=== PATIENT | female | born 1945 | race Caucasian/White ===

== ENCOUNTER 2016-05-10 07:45 | Emergency (ER) | payer OTHER ==
--- NOTE | 2016-05-10 08:07 | ED Physician Chart ---
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 History of Present Illness:: Pt has had dysuria, urgency and frequency with urination since this morning. No fever. No N/V/D. No lightheadedness or other bodily pain or discomfort. Allergies:: Codeine Vitals:: see Nurse Note. Historian:: Patient Family MD/PCP:: LMP:: Postmenopausal. Review:: Nurse's Note Reviewed Review of Systems - Review of Systems General/Constitutional: No fever, No chills, No weight loss, No weakness, No diaphoresis, No edema, No loss of appetite Skin: No skin lesions, No rash, No bruising Head: No headache, No light-headedness Eyes: No loss of vision, No pain, No diplopia ENT: No earache, No nasal drainage, No sore throat, No tinnitus Neck: No neck pain, No swelling, No thyromegaly, No stiffness, No mass noted Cardio Vascular: No chest pain, No palpitations, No PND, No orthopnea, No edema Pulmonary: No SOB, No cough, No sputum, No wheezing GI: No nausea, No vomiting, No diarrhea, No pain, No melena, No hematochezia, No constipation, No hematemesis G/U: Dysuria, Frequency, No hematuria Telehealth Coordinator: No vaginal discharge, No abnormal vaginal bleed Musculoskeletal: No bone or joint pain, No back pain, No muscle pain Endocrine: No polyuria, No polydipsia Psychiatric: No prior psych history Past Medical History - Past Medical History Past Medical History: HTN, DM, Thyroid disorder Family History: HTN (mother.) Social History: Non Smoker, No Alcohol, No Drug Use, , Lives Alone, Other (lives with) Employment:: Retired. Surgical History: Cholecystectomy (), Hysterectomy (. Right upper lobectomy . L knee arthroscopy . ), other (R breast lumpectomy and . Thyroidectomy. L hip replacement . Cervical laminectom ) Psychiatricy History: None Medication: Reviewed Physical Exam - Physical Examination General/Constitutional: Awake, Well-developed, well-nourished, Alert, No distress, GCS 15, Non-toxic appearing, Ambulatory Other Gen/Cons comments:: Breathes comfortably, speaks clearly, and interacts normally. Head: Atraumatic Eyes: Lids, conjuctiva normal, PERRL, EOMI Skin: Nl inspection, No rash, No skin lesions, No ecchymosis, Well hydrated, No lymphadenopathy Neck: Nontender, Full ROM w/o pain, No nuchal rigidity, No stridor Respiratory: Nl effort/Exclusion, Clear to Auscultation, No Wheeze/Rhonchi/Rales Cardio Vascular: RRR, No murmur, gallop, rubs, NL S1 S2 GI: No tenderness/rebounding/guarding, No organomegaly, No hernia, Normal BS's, Nondistended, No mass/bruits, No McBurney tenderness Other GI comments:: Abdomen is obese but soft. : No CVA tenderness Extremities: No tenderness or effusion, Full ROM, normal strength in all extremities, No edema, Normal digits & nails Neuro/Psych: Alert/oriented (oriented x 3), Judgement/insight normal, Mood normal, Normal gait, No focal deficits Labs/Radiology/EKG Results - Lab Results Results: Laboratory Tests 05/10/16 05/10/16 08:20 08:29 POC Glucose 187 H Urine Source [place] Urine Color YELLOW Urine Clarity SL. CLOUDY Urine pH 6.5 Ur Specific [place] 1.015 Urine Protein 100 H Urine Glucose (UA) NEGATIVE Urine Ketones NEGATIVE Urine Blood LARGE H Urine Nitrate NEGATIVE Urine Bilirubin NEGATIVE Urine Urobilinogen 0.2 Ur Leukocyte Esterase LARGE H Urine RBC 20-30 Urine WBC >100 H Ur Epithelial Cells FEW Urine Bacteria FEW ED Septic Shock - . Is Septic Shock (SBP<90, OR Lactate>4 mmol\L) present?: No Reassessment (Disposition) - Reassessment Reassessment:: 1005 Pt has been repeatedly evaluated. Pt remains stable. Lab findings have been reviewed with pt. Pt was noticed to have elevated BP. Pt stated that she had not taken her morning doses of antihypertensives today. Pt was given her usual medications metoprolol and losartan. Her BP has improved. Pt states that she knows how to monitor her BP at home and prefers to go home now. Pt does not want further observation/management in hospital. Pt will recheck her BP again prior to taking her diltiazem at home today. Pt is aware of the importance of compliance with medical therapy, as well as proper actions to be taken with poorly controlled and uncontrolled HTN. Aftercare instructions given. Reassessment Condition:: Improved - Diagnosis Diagnosis:: Urinary tract infection, stable. HTN, stable and improved. Diabetes mellitus, stable. - Aftercare/Follow up Instructions Aftercare/Follow-Up Instructions:: Refer to Discharge Instructions Notes:: Continue present care. F/U with PCP in one day for BP recheck and follow-up. Return to ER immediately if condition worsens or if any further questions/problems. Medication Prescribed:: Bactrim DS one tab po q12h for 7 days. D-14 R-0 Pyridium 200 mg tab one tab po q8h prn dysuria. D-6 R-0 - Patient Disposition Discharge/Transfer:: Home Time:: 10:10 Condition at Disposition:: Stable, Improved ED Discharge Plan - Patient Disposition Prescriptions: Sulfamethoxazole/TMP [Bactrim DS] 1 tab PO Q12HR #0 tab Phenazopyridine HCl [Pyridium] 200 mg PO TID #0 tab Instructions: Urinary Tract Infection, [id number] Additional Instructions: Follow up with your primary doctor in 1-2 days Take all antibiotics as prescribed Drink plenty of fluids If symptoms worsen return to ER
[2016-05-10 08:28] LABS: URINE BILIRUBIN NEGATIVE (NEGATIVE); URINE BLOOD LARGE (NEGATIVE); URINE COLOR YELLOW; URINE GLUCOSE (UA) NEGATIVE (NEGATIVE); URINE KETONE NEGATIVE (NEGATIVE); URINE PH 6.5; URINE PROTEIN 100 mg/dL (NEGATIVE)
[2016-05-10 08:29] LABS: URINE UROBILINOGEN 0.2 E.U./dL (0.2 - 1.0)
[2016-05-10 08:34] LABS: URINE BACTERIA FEW /hpf (NONE SEEN); URINE EPITHELIAL CELLS FEW /lpf (FEW); URINE RBC 20-30 /hpf (0-5); URINE WBC >100 /hpf (0-5)
[2016-05-10] MEDS ORDERED: Sulfamethoxazole/TMP 800/160mg Tab PO ONE (08:56)
[2016-05-10] MEDS ORDERED: Sulfamethoxazole/TMP 800/160mg Tab ONE (09:00)
== END 2016-05-10 10:00 | disposition home or self-care (01) ==
LOC: ER 07:45
DX: N39.0 Urinary tract infection, site not specified (principal); I10 Essential (primary) hypertension; E11.9 Type 2 diabetes mellitus without complications; E07.9 Disorder of thyroid, unspecified; E89.0 Postprocedural hypothyroidism; Z88.6 Allergy status to analgesic agent
CPT/HCPCS: 81001-TC; 82948-90; 87086-90; Z7502

== ENCOUNTER 2017-01-12 06:52 | Emergency (ER) | payer MEDICARE, OTHER ==
[2017-01-12 08:04] LABS: URINE BILIRUBIN NEGATIVE (NEGATIVE); URINE BLOOD SMALL (NEGATIVE); URINE GLUCOSE (UA) 100 mg/dL (NEGATIVE); URINE KETONE NEGATIVE (NEGATIVE); URINE PH 6.5 (4.6 - 8.0); URINE PROTEIN 30 mg/dL (NEGATIVE)
--- NOTE | 2017-01-12 08:12 | ED Physician Chart ---
Chief Complaint/HPI - Patient Information Date Seen:: 01/12/17 Time Seen:: 08:07 Chief Complaint:: dysuria History of Present Illness:: pt thinks she has uti sx since yest noon. was up 4x last nt to urinate. no fever. no back pain. some nausea and gi upset at times (similar to prior uti's)..not bad now. she is drinking ok at home. she had some leftover meds so took a bactrim ds and macrobid 1x last nt wo relief yet. has hx of uti's. she had l eye sx for cateract 2 wks ago. no weakness. .no instability. pt does not feel she needs to be in hospital..feels ok to be at home. needs more meds as has only 1 abx pill left. her pmd is closed and clinics were shut yest bc of holiday. Allergies:: Allergies Allergy/AdvReac Type Severity Reaction Status Date / Time codeine Allergy Verified 01/12/17 07:00 Vitals:: Vital Signs - 8 hr 01/12/17 06:55 Temp 97.2 F HR 88 RR 20 BP 131/79 O2 Sat % 97 Historian:: Patient Review of Systems - Review of Systems General/Constitutional: No fever, No chills, No weight loss, No weakness, No diaphoresis, No edema, No loss of appetite Skin: No skin lesions, No rash, No bruising Head: No headache, No light-headedness Eyes: No loss of vision, No pain, No diplopia ENT: No earache, No nasal drainage, No sore throat, No tinnitus Neck: No neck pain, No swelling, No thyromegaly, No stiffness, No mass noted Cardio Vascular: No chest pain, No palpitations, No PND, No orthopnea, No edema Pulmonary: No SOB, No cough, No sputum, No wheezing GI: No nausea, No vomiting, No diarrhea, No pain, No melena, No hematochezia, No constipation, No hematemesis G/U: Dysuria, No frequency, No hematuria Musculoskeletal: No bone or joint pain, No back pain, No muscle pain Endocrine: No polyuria, No polydipsia Psychiatric: No prior psych history, No depression, No anxiety, No suicidal ideation Hematopoietic: No bruising, No lymphadenopathy Allergic/Immuno: No urticaria, No angioedema Neurological: No syncope, No focal symptoms, No weakness, No paresthesia, No headache, No seizure, No dizziness, No confusion, No vertigo Past Medical History - Past Medical History Past Medical History: HTN (ctrld well per pt), Cataract (sx on l eye 2 wks ago) , Other (rt breast ca w multiple sx hx) Social History: Lives Alone Medication: Reviewed Family Medical History - Family Member Mother History Unknown: Yes Physical Exam - Physical Examination General/Constitutional: Awake, Well-developed, well-nourished, Alert, No distress, GCS 15, Non-toxic appearing, Ambulatory Other Gen/Cons comments:: alert. very verbose. nad. nontoxic. wn/wh. mod obese no edema. good mobility. Head: Atraumatic Eyes: Lids, conjuctiva normal, PERRL, EOMI Skin: Nl inspection, No rash, No skin lesions, No ecchymosis, Well hydrated, No lymphadenopathy ENMT: External ears, nose nl, Nasal exam nl, Lips, teeth, gums nl Neck: Nontender, Full ROM w/o pain, No JVD, No nuchal rigidity, No bruit, No mass, No stridor Respiratory: Nl effort/Exclusion, Clear to Auscultation, No Wheeze/Rhonchi/Rales Cardio Vascular: RRR, No murmur, gallop, rubs, NL S1 S2 GI: No tenderness/rebounding/guarding, No organomegaly, No hernia, Normal BS's, Nondistended, No mass/bruits, No McBurney tenderness Other GI comments:: nabs. no masses. no focal tndrness. mild tndr at bladder. no rebound. : No CVA tenderness Extremities: No tenderness or effusion, Full ROM, normal strength in all extremities, No edema, Normal digits & nails Neuro/Psych: Alert/oriented, DTR's symmetric, Normal sensory exam, Normal motor strength, Judgement/insight normal, Mood normal, Normal gait, No focal deficits Misc: normal gait, Normal back, No paraspinal tenderness Labs/Radiology/EKG Results - Lab Results Results: Laboratory Tests 01/12/17 07:05 Urine Source CLEAN C Urine Color ORANGE Urine Clarity [place] Urine pH 6.5 Ur Specific [place] 1.015 Urine Protein 30 H Urine Glucose (UA) 100 H Urine Ketones NEGATIVE Urine Blood SMALL H Urine Nitrate POSITIVE H Urine Bilirubin NEGATIVE Urine Urobilinogen 2.0 Ur Leukocyte Esterase LARGE H Urine RBC 10-25 H Urine WBC >100 H Ur Epithelial Cells FEW Urine Bacteria 4+ H ED Septic Shock - . Is Septic Shock (SBP<90, OR Lactate>4 mmol\L) present?: No - <6hrs of presentation: Vital Signs: Vital Signs - 8 hr 01/12/17 06:55 Temp 97.2 F HR 88 RR 20 BP 131/79 O2 Sat % 97 Reassessment (Disposition) - Reassessment Reassessment Condition:: Unchanged - Diagnosis Diagnosis:: uti - Aftercare/Follow up Instructions Aftercare/Follow-Up Instructions:: Counseled pt regarding lab results/diagnosis & need follow up - Patient Disposition Discharge/Transfer:: Home Condition at Disposition:: Unchanged
[2017-01-12 08:15] LABS: URINE COLOR ORANGE
[2017-01-12 08:28] LABS: URINE BACTERIA 4+ /hpf (NONE SEEN); URINE EPITHELIAL CELLS FEW /lpf (FEW); URINE WBC >100 /hpf (0-5)
== END 2017-01-12 09:00 | disposition home or self-care (01) ==
LOC: ER 06:52
DX: N39.0 Urinary tract infection, site not specified (principal); I10 Essential (primary) hypertension
CPT/HCPCS: 99284; 36416; 82948; 87086; 81001; Q0162; Z7502